=== PATIENT | female | born 1985 | race American Indian/Alaskan Native ===

== ENCOUNTER 2019-09-20 01:33 | Emergency (ER) | payer MEDICAID ==
[~2019-09-20] VITALS: Ht 167.6 cm; Wt 106.0 kg
[2019-09-20 01:35] VITALS: BP 162/95
[2019-09-20] MEDS ORDERED: metoclopramide 5 mg/ml inj IM ONE (01:50)
[2019-09-20] MEDS ORDERED: diphenhydrAMINE 50 mg/ml inj IM ONE (01:50)
[2019-09-20] MEDS ORDERED: ketorolac trometh. 30mg/ml inj. IM ONE (01:50)
[2019-09-20] MEDS ORDERED: AZIT-63 PO (01:52)
[2019-09-20] MEDS ORDERED: ONDA4TAB12 PO (01:52)
== END 2019-09-20 02:59 | disposition home or self-care (01) ==
LOC: ER 01:34
DX: J32.9 Chronic sinusitis, unspecified (principal); Z79.2 Long term (current) use of antibiotics; Z88.8 Allergy status to other drugs, medicaments and biological substances
CPT/HCPCS: 96372; 99283; J1200; J1885; J2765